=== PATIENT | male | born 1985 | race Caucasian/White ===

== ENCOUNTER 2023-06-20 00:25 | Emergency (ER) | payer OTHER, SELFPAY ==
[2023-06-20] VITALS (7 sets, daily range): BP systolic 96–131; BP diastolic 62–111; BMI 24.0
[2023-06-20 01:20] LABS: % Basophils 0.4 % (0-2); % Eosinophils 2.4 % (0-6); % Immature Granulocytes 0.2 % (0-0.5); % Lymphocytes 33.2 % (20.5-51.1); % Monocytes 10.8 % (1.7-9.3); Absolute Eosinophils 0.1 10^3/uL (0-0.7); Absolute Lymphocytes 1.8 10^3/uL (1.2-3.4); Absolute Monocytes 0.6 10^3/uL (0.1-0.6); Absolute Neutrophils 2.8 10^3/uL (1.4-6.5); Hematocrit 38.9 % (39.0-52.0); Hemoglobin 13.5 g/dL (13.0-18.0); Mean Corp Hgb Conc. 34.7 g/dL (33.0-37.0); Mean Corpuscular Volume 80.7 fL (80.0-94.0); Mean Platelet Volume 8.3 fL (7.4-10.4); Nucleated Red Blood Cells % 0 % (-); Platelet Count 283 10^3/uL (130-400); Red Blood Cell Count 4.82 10^6/uL (4.70-6.10); Red Cell Dist. Width 15.3 % (11.5-14.5); White Blood Cell Count 5.4 10^3/uL (4.8-10.8)
[2023-06-20 01:33] LABS: ALT (SGPT) 146 U/L (0-50); AST (SGOT) 65 U/L (17-59); Alkaline Phosphatase 111 U/L (38-126); Blood Urea Nitrogen 21 mg/dl (9-20); Calcium 9.3 mg/dl (8.4-10.2); Carbon Dioxide 31 mmol/L (22-30); Chloride 97 mmol/L (98-107); Estimated Creatinine Clearance > 125 ml/min; Glucose 113 mg/dl (70-99); Potassium 4.4 mmol/L (3.5-5.1); Sodium 132 mmol/L (135-145); Total Bilirubin 0.5 mg/dl (0.2-1.3); Total Protein 8.8 g/dl (6.3-8.2); eGFR > 60.00
[2023-06-20 01:43] LABS: Troponin I < 0.012 ng/ml
--- NOTE | 2023-06-20 03:29 | ED.GENMED ---
History of Present Illness
General
Chief Complaint: Chest Pain
Source: patient and other ([facility] guards)
Exam Limitations: none
Time Seen by Provider: 06/20/23 03:28
Nursing documentation reviewed up to this point in time: agreed with
Travel History
Have you had any contact with someone who has COVID-19?: No
Do you have any symptoms of coronavirus? Fever > 100 degrees, chills, cough, shortness of breath, sore throat, loss of taste or smell, muscle aches, or headache?: No
History of Present Illness
History of Present Illness:
37-year-old male presents emergency room after having left-sided chest pain and left axillary pain earlier today. He came from residential. He was in solitary confinement. He states he felt tingly and woke up on the floor. No seizure activity was
witnessed. He complains of pain in his left breast and left armpit. It hurts when he moves his left arm. He states he had his left breast ultrasounded and did not find any abnormalities at the present. 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
kidney that was to be biopsied at [facility]. This was scheduled but he was arrested the day he was supposed to get the biopsy.
Past History
Past History
ED Past Medical History: Seizures and Other (Crohn's, hepatitis C, HIV positive, anemia)
ED Past Surgical History: Other (Foreign body, removed from right arm)
Social History
Tobacco: Former smoker
Alcohol: None
Drug: Other (meth, tranq)
Phy Exam
Physical Exam
Physical Exam:
Physical Exam
General: no apparent distress, not acutely ill
Neck: supple. no meningeal signs. normal posterior pharynx
Heart: s1/s2 regular rate and rhythm, no murmur. equal radial
pulses.
HEENT: Pupils equal round reactive to light, EOMI
Lungs: no acute respiratory distress. clear bilaterally, left-sided chest wall tender to palpation
Abdomen: normal bowel sounds. not tender. no CVAT
Neuro: alert and oriented. no focal neurological deficits cranial nerves II through XII intact
Skin: no rash
Psychiatric: well kept. interactive and cooperative
Extremities: no edema. no calf tenderness. negative homans. good distal pulses
Scores
Heart Score for Chest Pain Patients
STEMI patient?: No
History: Slightly or Non-Suspicious
ECG: Normal
Age: </= 45 years
Risk Factors: 1 or 2 Risk Factors
Troponin: </= Normal Limit
Heart Score for Chest Pain Patients: 1
Heart Score Risk: 2.5% MACE over next 6 weeks
Course
Orders/Labs/Results
Orders:
Orders
06/20/23 00:35
Electrocardiogram (*1) Urgent
Reason for Study: Chest Pain
06/20/23 00:36
EKG- Treatment ONCE
06/20/23 00:54
CMP [Comprehensive Metabolic Panel] Urgent
Complete Blood Count/With Diff Urgent
Troponin I Urgent
06/20/23 03:43
CR Chest - 2 Views Urgent
Comment:
Reason For Exam: left side chest pain
Abnormal Lab Results
06/20/23
00:54
Hct 38.9 L %
(39.0-52.0)
RDW 15.3 H %
(11.5-14.5)
Monocytes % 10.8 H %
(1.7-9.3)
Sodium 132 L mmol/L
(135-145)
Chloride 97 L mmol/L
(98-107)
Carbon Dioxide 31 H mmol/L
(22-30)
BUN 21 H mg/dl
(9-20)
Glucose 113 H mg/dl
(70-99)
AST 65 H U/L
(17-59)
ALT 146 H U/L
(0-50)
Total Protein 8.8 H g/dl
(6.3-8.2)
06/20/23 00:54
06/20/23 00:54
Vital Signs
Initial and Last Documented VS:
Initial Vital Signs
Temp Pulse Resp BP Pulse Ox
98.8 F 100 15 110/77 98
06/20/23 00:37 06/20/23 00:37 06/20/23 00:37 06/20/23 00:37 06/20/23 00:37
Last Documented Vital Signs
Temp Pulse Resp BP Pulse Ox
98.8 F 86 17 116/74 97
06/20/23 00:37 06/20/23 03:30 06/20/23 03:30 06/20/23 03:00 06/20/23 03:15
MDM/Problems Addressed
Differential Diagnosis Includes:
ACS, pneumonia, PE
MDM/Problems Addressed:
37-year-old male with left-sided chest wall pain. Normal EKG, tender to palpation, reproducible pain. Do not suspect ACS or PE. Patient stable for discharge.
Chronic conditions affecting care: Other (Crohn's)
Acute Exacerbation and/or Progression of Chronic Illness: Other (Crohn's)
*Radiology
Radiology exam reviewed: preliminary read by ED provider (Chest x-ray no acute finding)
*Pulse Oximetry
Patient hypoxic: no
*EKG
Interpreted by ED Provider?: Yes
EKG Intrepretation Date: 06/20/23
EKG Intrepretation Time: 00:40
Interpretation: normal
Comparison EKG: no comparison EKG present
Heart Rate: 89
Rate: normal
Rhythm: sinus
[place]: normal axis
Interval: normal interval
QRS Pattern: normal QRS
Ischemia: no ischemia
*Respiratory Care Faculty Interpretation
Rate: normal
Interpretation: normal
Heart Rate: 88
Rhythm: sinus
*Critical Care Note
Total Time (30-74mins, 75-104mins- exclusive of procedures): Not Applicable
Patient Management
Social determinants of health affecting care: Living situation
Escalation/DeEscalation of care consider admission/obs:
Admit not indicated
ED Attending Note
-
Portions of this chart may have been created with voice recognition software.� Occasional wrong word or��sound alike� substitutions may have occurred due to the inherent limitations of voice recognition software.
Discharge Plan
Departure
Patient Disposition: [facility]way
Date of Disposition: 06/20/23
Time of Disposition: 06:55
Patient with high blood pressure during this ER visit?: No
Condition: Good
Discharge Problem:
Chest pain, non-cardiac
Instructions: Chest Pain That Is Not Caused by the Heart (DC)
Referrals:
[facility] [Family Provider] - Call in 1-3 days for appt
Activity Restrictions/Additional Instructions:
Patient needs to follow-up with [facility] for biopsy of kidney lesion he has reported. Follow-up on ultrasound with residential care.
Interventions
Interventions:
*Risk Screen - Suicide Last Done: 06/20/23 00:37
*General Assessment Last Done: 06/20/23 00:37
*Neglect/Abuse Screening Last Done: 06/20/23 00:37
ED- Fall Risk Assessment Last Done: 06/20/23 01:20
*ED COVID-19 Vaccine History Last Done: 06/20/23 00:37
ED- Cardiac Assessment Last Done: 06/20/23 01:20
Discharge Date and Time
Print Language: ROMANIAN
--- NOTE | 2023-06-20 03:33 | EDRN ---
Gave patient a drink of water and apple sauce, Dr. Jha at bedside to see patient.
--- NOTE | 2023-06-20 03:52 | EDRN ---
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
== END 2023-06-20 07:19 ==
LOC: EMR 00:25
PROVIDERS: EMERGENCY PHYSICIAN Emergency Medicine
DX: R07.89 Other chest pain (principal); K50.90 Crohn's disease, unspecified, without complications; Z87.891 Personal history of nicotine dependence
CPT/HCPCS: 99285; 71046; 80053; 84484; 85025; 93005